=== PATIENT | female | born 2000 | race Caucasian/White ===

== ENCOUNTER 2020-02-06 13:45 | Emergency (ER) | payer OTHER ==
[~2020-02-06] VITALS: Ht 165.1 cm; Wt 88.5 kg
[2020-02-06 15:28] LABS: URINE BILIRUBIN NEGATIVE (Negative); URINE BLOOD NEGATIVE (Negative); URINE CLARITY CLEAR; URINE COLOR YELLOW; URINE GLUCOSE-RANDOM NEGATIVE (Negative); URINE KETONES NEGATIVE (Negative); URINE LEUKOCYTES-REFLEX NEGATIVE (Negative); URINE NITRITE-REFLEX NEGATIVE (Negative); URINE PROTEIN NEGATIVE (Negative); URINE SPECIFIC GRAVITY 1.025 (1.005-1.030); URINE UROBILINOGEN 0.2 E.U./dl (0.2-1.0)
[2020-02-06 16:19] LABS: ABSOLUTE BASOPHILS 0.1 thou/uL (0.0-0.2); ABSOLUTE EOSINOPHILS 0.1 thou/uL (0.0-0.7); ABSOLUTE LYMPHOCYTES 2.4 thou/uL (0.8-5.3); ABSOLUTE MONOCYTES 0.5 thou/uL (0.0-1.2); ABSOLUTE NEUTROPHILS 6.8 thou/uL (1.6-8.1); BASOPHILS 0.6 %; EOSINOPHILS 0.7 %; HEMATOCRIT 37.7 % (37.0-47.0); HEMOGLOBIN 12.2 gm/dL (12.0-15.0); LYMPHOCYTES 24.1 %; MCH 26.3 pg (26.0-34.0); MCHC 32.4 g/dL (28.0-37.0); MONOCYTES 5.2 %; MPV 8.8 fl. (7.2-11.1); NUCLEATED RBCS 0 /100WBC; PLATELET COUNT* 282 thou/uL (150-400); POLYS 69.4 %; RBC 4.65 mil/uL (4.20-5.00); RDW-CV 15.3 % (10.5-14.5); WBC 9.9 thou/uL (4.0-11.0)
[2020-02-06 16:27] LABS: CALCIUM 9.6 mg/dL (8.5-10.1); CREATININE 0.6 mg/dL (0.6-1.3); POTASSIUM 3.6 mmol/L (3.5-5.1)
[2020-02-06 16:31] LABS: ALBUMIN 3.9 g/dL (3.4-5.0); TOTAL BILIRUBIN 0.4 mg/dL (<0.1-1.0); TOTAL PROTEIN 7.9 g/dL (6.4-8.2)
[2020-02-06] MEDS ORDERED: ONDANSETRON ODT4 MG PO (16:33)
[2020-02-06] MEDS ORDERED: NAPROSYN500 MG PO (16:33)
[2020-02-06] MEDS ORDERED: APAP W/CODEINE1 TA2 PO (16:33)
[2020-02-06 16:50] VITALS: BP 128/69
== END 2020-02-06 16:51 | disposition home or self-care (01) ==
LOC: M.ERS 13:45
PROVIDERS: Family Medicine
DX: R10.31 Right lower quadrant pain (principal); Z90.89 Acquired absence of other organs